=== PATIENT | female | born 1990 | race Two or more races ===

== ENCOUNTER 2017-08-11 18:56 | Emergency (ER) | payer OTHER ==
[~2017-08-11] VITALS: Ht 160 cm; Wt 60.8 kg
[~2017-08-11 18:56] MED LIST: BACTRIM-DS1 EA ORAL; TRAMADOL HCL50 MG ORAL; ZOFRAN ODT4 MG ORAL
[2017-08-11 20:42] VITALS: BP 135/79
[2017-08-11] MEDS ORDERED: Famotidine 20 MG/ 2ML VIAL IVP ONE (21:00)
--- NOTE | 2017-08-11 21:21 | Emergency Room Report ---
History of Present Illness General Chief Complaint: Vomiting Source: Patient Present Illness HPI 27YOF with nausea/vomiting, epigastric pain Drinks a lot of whiskey daily Drank a lot last night Multiple episodes of vomiting/retching then "blood" in vomitus Denies chest pain, SOB Denies history of ulcers, gastritis, upper/lower GI bleed, rectal bleed, melena Allergies: Coded Allergies: No Known Allergies (Unverified , 06/01/14) Patient History Past Medical History: none Past Surgical History: none Pertinent Family History: none Social History: Reports: alcohol use Now: No Immunizations: UTD Reviewed Nursing Documentation: PMH: Agreed, PSxH: Agreed Nursing Documentation-PMH Past Medical History: No History, Except For Hx Gastrointestinal Problems: Yes - ALCOHOL ABUSE Review of Systems All Other Systems: negative except mentioned in HPI Physical Exam Vital Signs Date Time Temp Pulse Resp B/P (MAP) Pulse Ox O2 Delivery O2 Flow Rate FiO2 08/11/17 19:02 98.1 84 20 128/91 98 Room Air Sp02 EP Interpretation: reviewed, normal General Appearance: normal inspection, well appearing, no apparent distress, alert, GCS 15, non-toxic Head: normocephalic, atraumatic Eyes: bilateral eye PERRL, bilateral eye EOMI ENT: normal ENT inspection, hearing grossly normal, normal voice Neck: normal inspection, full range of motion, supple, no bony tend Respiratory: normal inspection, lungs clear, normal breath sounds, no respiratory distress, no retraction, no wheezing Cardiovascular #1: regular rate, rhythm, no edema Gastrointestinal: normal inspection, normal bowel sounds, soft, no guarding, no hernia, other - mild epigastric ttp Genitourinary: no CVA tenderness Musculoskeletal: normal inspection, back normal, normal range of motion, Glenn' s Sign negative Neurologic: normal inspection, alert, responsive, speech normal Psychiatric: normal inspection, judgement/insight normal, mood/affect normal Skin: normal inspection, normal color, no rash Medical Decision Making Diagnostic Impression: Primary Impression: Hematemesis Qualified Codes: K92.0 - Hematemesis Additional Impressions: Gastritis Qualified Codes: K29.20 - Alcoholic gastritis without bleeding Alcohol abuse UTI (urinary tract infection) Qualified Codes: N30.01 - Acute cystitis with hematuria ER Course Improved with IV pepcid Likely gastritis from ETOH abuse No palpable crepitus, CXR negative for perforation - doubt esophageal rupture Advised against heavy ETOH abuse Labs ok - H&H stable DC with Rx Pepcid, zofran UA + for UTI Rx Keflex after initial IV dose here DC home Low suspicion for acute bacterial/surgical process requiring additional lab work , imaging, admission and/or surgical evaluation at this time given well appearing, non-focal abd on serial exam, stable vital signs, and tolerating PO. In shared decision making process with patient, understands to return to ER for worsening symptoms and to followup with PMD in reasonable amount of time, 2-3 days. Chest X-Ray Diagnostic Results Chest X-Ray Diagnostic Results : Chest X-Ray Ordered: Yes # of Views/Limited/Complete: 1 View Indication: Chest Pain EP Interpretation: Yes Interpretation: no consolidation, no effusion, no pneumothorax, no acute cardiopulmonary disease Impression: No acute disease Electronically Signed by: Dr Cassy San MD Last Vital Signs Date Time Temp Pulse Resp B/P (MAP) Pulse Ox O2 Delivery O2 Flow Rate FiO2 08/11/17 20:42 98.1 80 16 135/79 98 Room Air Status: improved Disposition: HOME, SELF-CARE Scripts Cephalexin* (KEFLEX*) 500 Mg Capsule 500 MG ORAL Q12HR for 7 Days, #14 CAP 0 Refills Prov: CASSY SAN M.D. 08/11/17 Ondansetron Odt* (ZOFRAN ODT*) 4 Mg Tab.rapdis 4 MG ORAL EVERY 8 HOURS for 3 Days, #10 TAB 0 Refills Prov: CASSY SAN M.D. 08/11/17 Famotidine (PEPCID) 40 Mg Tablet 40 MG PO DAILY for 7 Days, #14 TAB 0 Refills Prov: CASSY SAN M.D. 08/11/17 Referrals: [facility],REFERRING (PCP) CASSY SAN M.D. Aug 11, 2017 21:21
[2017-08-11] MEDS ORDERED: ONDANSETRON ODT4 MG ORAL (21:22)
[2017-08-11] MEDS ORDERED: PEPCID40 MG PO (21:22)
[2017-08-11 21:29] LABS: APPEARANCE,URINE CLEAR; KETONES,URINE 1+ (NEGATIVE); LEUKOCYTE ESTERASE ,URINE 2+ (NEGATIVE); NITRITE,URINE NEGATIVE (NEGATIVE); PH,URINE 8 (4.5-8.0); PROTEIN,URINE 1+ (NEGATIVE); UROBILINOGEN,URINE NORMAL MG/DL (0.0-1.0)
[2017-08-11 21:43] LABS: AMORPHOUS SEDIMENT,UR FEW /LPF; BACTERIA,URINE MODERATE /HPF; SQUAMOUS EPITHELIAL CELL,UR FEW /LPF (NONE/OCC)
[2017-08-11] MEDS ORDERED: cefTRIAXone 1 GM in NS 55 ML IVPB ONE (21:45)
[2017-08-11] MEDS ORDERED: KEFLEX500 MG ORAL (21:46)
[2017-08-11 23:11] VITALS: BP_SYST 131; BP_SYST 135; BP_DIAS 70; BP_DIAS 79
--- NOTE | 2017-08-12 12:23 | Diagnostic Imaging Report ---
Indication: Dyspnea Comparison: None A single view chest radiograph was obtained. Findings: Cardiomediastinal appearance is within normal limits for age. Pulmonary vascularity is appropriate. The diaphragmatic contour is smooth and costophrenic angles are sharp. No pleural effusions are identified. The bones are unremarkable. Impression: No acute findings
== END 2017-08-11 23:12 | disposition home or self-care (01) ==
LOC: EMR 20:55
DX: K92.0 Hematemesis (principal); K29.20 Alcoholic gastritis without bleeding; F10.10 Alcohol abuse, uncomplicated; N39.0 Urinary tract infection, site not specified; R11.10 Vomiting, unspecified; R10.13 Epigastric pain
CPT/HCPCS: 71010; 81003; 87086; 87181; 96361; 96365; 96375; 99284; J0696; J2405; S0028